=== PATIENT | male | born 1970 | race Two or more races ===

== ENCOUNTER 2023-05-02 10:42 | Emergency (ER) | payer OTHER ==
[~2023-05-02] VITALS: Ht 172.7 cm; Wt 69.2 kg
[2023-05-02 10:58] VITALS: BP 129/74
== END 2023-05-02 13:06 | disposition home or self-care (01) ==
LOC: ER 10:42
DX: S00.03XA Contusion of scalp, initial encounter (principal); W18.39XA Other fall on same level, initial encounter; Y93.89 Activity, other specified; Y92.89 Other specified places as the place of occurrence of the external cause; Y99.8 Other external cause status
CPT/HCPCS: 70450